=== PATIENT | female | born 1980 | race Caucasian/White ===

== ENCOUNTER 2017-09-01 11:54 | Emergency (ER) | payer OTHER ==
[~2017-09-01] VITALS: Ht 175.3 cm; Wt 63.5 kg
[~2017-09-01 11:54] MED LIST: ACETAMINOPHEN-1 EAC1 PO; ATIVAN1 MG PO; CIPRO500 MG PO; DEPAKOTE ER250 MG PO; HUMALOG100 UNIT/2 SQ; IBUPROFEN 800800 M1 PO; LIORESAL 10 MG10 MG PO; MACROBID 100 M100 M1 PO; MEDROLDOSEPACK PO; METFORMIN HCL500 MG PO; MIRENA1 EACH; NORCO 5-325 TA1 EAC1 PO; PROAIR HFA8.5 GM INH; PYRIDIUM200 MG PO; ROBAXIN 750 MG750 M1 PO; TRAZODONE HCL100 MG PO; VENTOLIN HFA 1818 GM INH; ZOFRAN ODT4 MG PO
[2017-09-01] MEDS ORDERED: AMOXICILLIN 50500 MG PO (12:04)
[2017-09-01] MEDS ORDERED: ULTRAM 50MG TAB50 MG PO (12:04)
[2017-09-01 12:09] VITALS: BP 138/94
== END 2017-09-01 12:10 | disposition home or self-care (01) ==
LOC: M.ERS 11:54
DX: K02.9 Dental caries, unspecified (principal); J45.909 Unspecified asthma, uncomplicated; E11.9 Type 2 diabetes mellitus without complications; F31.9 Bipolar disorder, unspecified; G43.909 Migraine, unspecified, not intractable, without status migrainosus; F17.210 Nicotine dependence, cigarettes, uncomplicated; Z88.1 Allergy status to other antibiotic agents; Z91.041 Radiographic dye allergy status; Z79.4 Long term (current) use of insulin

== ENCOUNTER 2017-09-27 17:16 | Emergency (ER) | payer OTHER ==
[~2017-09-27] VITALS: Ht 175.3 cm; Wt 81.7 kg
[~2017-09-27 17:16] MED LIST changes: +AMOXICILLIN 50500 MG PO; +ULTRAM 50MG TAB50 MG PO
[2017-09-27] MEDS ORDERED: METFORMIN HCL500 MG PO (17:25)
[2017-09-27] MEDS ORDERED: DOXYCYCLINE 10100 MG PO (17:30)
[2017-09-27 17:39] VITALS: BP 127/81
== END 2017-09-27 17:48 | disposition home or self-care (01) ==
LOC: M.ERS 17:16
DX: L03.116 Cellulitis of left lower limb (principal); J45.909 Unspecified asthma, uncomplicated; E11.9 Type 2 diabetes mellitus without complications; F31.9 Bipolar disorder, unspecified; G43.909 Migraine, unspecified, not intractable, without status migrainosus; F17.210 Nicotine dependence, cigarettes, uncomplicated; Z88.1 Allergy status to other antibiotic agents; Z91.040 Latex allergy status

== ENCOUNTER 2017-12-20 12:23 | Emergency (ER) | payer OTHER ==
[~2017-12-20] VITALS: Ht 175.3 cm; Wt 83.0 kg
[~2017-12-20 12:23] MED LIST changes: +DOXYCYCLINE 10100 MG PO
[2017-12-20] MEDS ORDERED: IMITREX 25 MG T25 M1 PO (12:36)
[2017-12-20] MEDS ORDERED: TOPAMAX 100 MG100 MG PO (12:38)
[2017-12-20] MEDS ORDERED: AMITRIPTYLINE H25 M2 PO (12:38)
[2017-12-20] MEDS ORDERED: BUTALB-APAP-CA1 EACH PO (15:36)
[2017-12-20] MEDS ORDERED: ONDANSETRON HCL4 M2 PO (15:36)
[2017-12-20 16:13] VITALS: BP 113/71
== END 2017-12-20 16:32 | disposition home or self-care (01) ==
LOC: M.ERS 12:23
DX: R51 Headache (principal); F31.9 Bipolar disorder, unspecified; J45.909 Unspecified asthma, uncomplicated; F17.210 Nicotine dependence, cigarettes, uncomplicated; Z88.1 Allergy status to other antibiotic agents; Z91.040 Latex allergy status; Z88.8 Allergy status to other drugs, medicaments and biological substances; Z91.018 Allergy to other foods

== ENCOUNTER 2018-01-16 15:32 | Emergency (ER) | payer MEDICAID ==
[~2018-01-16] VITALS: Ht 175.3 cm; Wt 81.7 kg
[~2018-01-16 15:32] MED LIST changes: +AMITRIPTYLINE H25 M2 PO; +BUTALB-APAP-CA1 EACH PO; +IMITREX 25 MG T25 M1 PO; +ONDANSETRON HCL4 M2 PO; +TOPAMAX 100 MG100 MG PO
[2018-01-16] MEDS ORDERED: QUETIAPINE FUM100 MG PO (15:55)
[2018-01-16] MEDS ORDERED: ALBUTEROL2.5 MG/31 INH (15:55)
[2018-01-16] MEDS ORDERED: HUMALOG100 UNIT/2 SQ (15:56)
[2018-01-16 16:27] LABS: ABSOLUTE EOSINOPHILS 0.4 thou/uL (0.0-0.7); ABSOLUTE LYMPHOCYTES 2.5 thou/uL (0.8-5.3); ABSOLUTE MONOCYTES 0.4 thou/uL (0.0-1.2); ABSOLUTE NEUTROPHILS 4.3 thou/uL (1.6-8.1); BASOPHILS 0.6 %; EOSINOPHILS 5.1 %; HEMATOCRIT 37.1 % (37.0-47.0); HEMOGLOBIN 12.6 gm/dL (12.0-15.0); LYMPHOCYTES 32.4 %; MCH 32.6 pg (26.0-34.0); MCV 95.7 fL (80.0-100.0); MONOCYTES 5.7 %; MPV 9.1 fl. (7.2-11.1); NUCLEATED RBCS 0 /100WBC; PLATELET COUNT* 237 thou/uL (150-400); POLYS 56.2 %; RBC 3.87 mil/uL (4.20-5.00); RDW-CV 13.3 % (10.5-14.5); WBC 7.7 thou/uL (4.0-11.0)
[2018-01-16 16:33] LABS: CALCIUM 8.9 mg/dL (8.5-10.1); CREATININE 0.9 mg/dL (0.6-1.3); POTASSIUM 3.3 mmol/L (3.5-5.1)
[2018-01-16 16:37] LABS: ALBUMIN 3.7 g/dL (3.4-5.0); TOTAL BILIRUBIN 0.2 mg/dL (<0.1-1.0); TOTAL PROTEIN 7.4 g/dL (6.4-8.2)
[2018-01-16] MEDS ORDERED: ISENTRESS400 MG PO (17:28)
[2018-01-16] MEDS ORDERED: TRUVADA 200 MG1 EACH PO (17:28)
[2018-01-16] MEDS ORDERED: ZOFRAN4 MG PO (17:28)
[2018-01-16 17:36] VITALS: BP 124/78
[2018-01-17 17:08] LABS: HIV-1/HIV-2 ANTIBODY Non Reactive (Non Reactive)
== END 2018-01-16 17:37 | disposition home or self-care (01) ==
LOC: M.ERS 15:32
PROVIDERS: Nurse Practitioner Family
DX: S61.236A Puncture wound without foreign body of right little finger without damage to nail, initial encounter (principal); F31.9 Bipolar disorder, unspecified; J45.909 Unspecified asthma, uncomplicated; E11.9 Type 2 diabetes mellitus without complications; G43.909 Migraine, unspecified, not intractable, without status migrainosus; F17.210 Nicotine dependence, cigarettes, uncomplicated; Z91.040 Latex allergy status; Z88.1 Allergy status to other antibiotic agents; Z91.018 Allergy to other foods; Z88.8 Allergy status to other drugs, medicaments and biological substances; Z79.4 Long term (current) use of insulin; W22.8XXA Striking against or struck by other objects, initial encounter; Y93.89 Activity, other specified; Y92.89 Other specified places as the place of occurrence of the external cause; Y99.8 Other external cause status